=== PATIENT | male | born 1965 | race Caucasian/White ===

== ENCOUNTER 2017-08-02 00:43 | Emergency (ER) | payer OTHER ==
[2017-08-02] MEDS ORDERED: Ibuprofen TAB* 600 MG PO ONE (01:59)
[2017-08-02 02:15] LABS: INR 0.99 (0.77-1.02)
--- NOTE | 2017-08-02 02:23 | ED ---
Davida Goldman Emily, scribed for Elizabeth Whitt MD on 08/02/17 at 0113 . Lower Extremity - HPI Summary HPI Summary: This patient is a 52 year old M presenting to [facility] with a chief complaint of L knee swelling that began PR[employer]. Pt reports that he recently flew from [place] and then drove from [facility]. The patient rates the pain 3/10 in severity. Symptoms aggravated by bending the knee. Symptoms alleviated by nothing. Pt reports that he has a history of swelling in the L knee, but reports that his current symptoms do not feel similar to previous swelling. - History of Current Complaint Chief Complaint: EDExtremityLower Stated Complaint: KNEE SWELLING Time Seen by Provider: 08/02/17 00:55 Hx Obtained From: Patient Onset of Pain: Hours, Prior to Arrival Onset/Duration: Still Present Severity Initially: Mild Severity Currently: Mild Pain Intensity: 3 Pain Scale Used: 0-10 Numeric Timing: Constant, Lasting Hours Location: Is Discrete @ - L knee Aggravating Factor(s): Other - Bending of knee Alleviating Factor(s): Nothing Able to Bear Weight: Yes - Allergies/Home Medications Allergies/Adverse Reactions: Allergies Allergy/AdvReac Type Severity Reaction Status Date / Time No Known Allergies Allergy Verified 08/02/17 00:48 PMH/Surg Hx/FS Hx/Imm Hx Previously Healthy: No Musculoskeletal History: Reports: Other Musculoskeletal History - Swelling in L knee Opthamlomology History: Denies: Hx Legally Blind EENT History: Denies: Hx Deafness Infectious Disease History: No Infectious Disease History: Denies: Traveled Outside the [place] in Last 30 Days - Family History Known Family History: Positive: Cardiac Disease, Diabetes - Social History Occupation: Employed Full-time Lives: With Family Alcohol Use: Occasionally Hx Substance Use: No Substance Use Type: Reports: None Hx Tobacco Use: No Smoking Status (MU): Never Smoked Tobacco Review of Systems Negative: Fever Positive: Edema All Other Systems Reviewed And Are Negative: Yes Physical Exam - Summary Physical Exam Summary: VITAL SIGNS: Reviewed. GENERAL: Patient is a well-developed and nourished male who is lying comfortable in the stretcher. Patient is not in any acute respiratory distress. HEAD AND FACE: No signs of trauma. No ecchymosis, hematomas or skull depressions. No sinus tenderness. EYES: PERRLA, EOMI x 2, No injected conjunctiva, no nystagmus. EARS: Hearing grossly intact. Ear canals and tympanic membranes are within normal limits. MOUTH: Oropharynx within normal limits. NECK: Supple, trachea is midline, no adenopathy, no JVD, no carotid bruit, no c- spine tenderness, neck with full ROM. CHEST: Symmetric, no tenderness at palpation LUNGS: Clear to auscultation bilaterally. No wheezing or crackles. CVS: Regular rate and rhythm, S1 and S2 present, no murmurs or gallops appreciated. ABDOMEN: Soft, non-tender. No signs of distention. No rebound no guarding, and no masses palpated. Bowel sounds are normal. EXTREMITIES: FROM in all major joints, Mild swelling of left knee. Pain with flexion beyond 70 degrees. No other signs of inflammation. No cyanosis or clubbing. NEURO: Alert and oriented x 3. No acute neurological deficits. Speech is normal and follows commands. SKIN: Dry and warm Triage Information Reviewed: Yes Vital Signs On Initial Exam: Initial Vitals Temp Pulse Resp BP Pulse Ox 98.3 F 71 16 149/100 100 08/02/17 00:45 08/02/17 00:45 08/02/17 00:45 08/02/17 00:45 08/02/17 00:45 Vital Signs Reviewed: Yes Diagnostics - Vital Signs Vital Signs Temp Pulse Resp BP Pulse Ox 08/02/17 00:45 98.3 F 71 16 149/100 100 - Laboratory Lab Statement: Any lab studies that have been ordered have been reviewed, and results considered in the medical decision making process. 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 Bloodwork obtained. D Dimer is normal, pt does not have blood clots. Likely osteoarthritis of the knee. No ultrasound available at this time. The patient will be discharged with follow up from PCP and orthopedics. He is agreeable with this plan. - Diagnoses Provider Diagnoses: Arthritis of left knee Discharge - Sign-Out/Discharge Documenting (check all that apply): Discharge/Admit/Transfer - Discharge home - Discharge Plan Condition: Stable Disposition: HOME Prescriptions: Ibuprofen TAB* [Motrin TAB* 600 MG] 600 mg PO Q6H PRN #30 tab PRN Reason: Pain Patient Education Materials: Osteoarthritis (ED) Referrals: [facility] [Provider Group] - 2 Days [facility] [Outside] - 2 Days Additional Instructions: RETURN TO THE EMERGENCY DEPARTMENT FOR NEW OR WORSENING SYMPTOMS The documentation as recorded by the Davida whittaker Emily accurately reflects the service I personally performed and the decisions made by , Elizabeth Whitt MD.
[2017-08-02 02:29] VITALS: BP 138/98
== END 2017-08-02 02:28 | disposition home or self-care (01) ==
LOC: ED 00:43
DX: M17.12 Unilateral primary osteoarthritis, left knee (principal); Z82.49 Family history of ischemic heart disease and other diseases of the circulatory system; Z83.3 Family history of diabetes mellitus
CPT/HCPCS: 36415; 85379; 85610; 85730; 99282; A9270-GY